=== PATIENT | male | born 1945 | race Caucasian/White ===

== ENCOUNTER 2018-02-16 14:39 | Emergency (ER) | payer MEDICARE, OTHER ==
[~2018-02-16] VITALS: Ht 185.4 cm; Wt 95.2 kg
[~2018-02-16 14:39] MED LIST changes: -CYCLOBENZAPRINE10 MG PO; -HYDROCODON-ACE1 EA13 PO
[2018-02-16] MEDS ORDERED: CYCLOBENZAPRINE10 MG PO ×2 (15:06)
[2018-02-16] MEDS ORDERED: HYDROCODON-ACE1 EA13 PO ×2 (15:06)
== END 2018-02-16 16:06 | disposition home or self-care (01) ==
LOC: ED 14:39
DX: M17.11 Unilateral primary osteoarthritis, right knee (principal)
CPT/HCPCS: 73560; 99283

== ENCOUNTER → 2018-02-16 | Emergency (ER) | payer MEDICARE, OTHER ==
[~2018-02-16] VITALS: Ht 185.4 cm; Wt 95.2 kg
[~2018-02-16] MED LIST: COLACE100 MG PO; CYCLOBENZAPRINE10 MG PO; HYDROCODON-ACE1 EA13 PO; NAPROXEN375 MG PO; NORCO 5-325 TA1 EACH PO; VALIUM5 MG PO
== END ==
LOC: ED 13:38
DX: M25.561 Pain in right knee (principal)

== ENCOUNTER 2020-03-01 07:50 | Day surgery (SDC) | payer OTHER ==
--- NOTE | 2020-02-24 10:57 | NUR ---
PT HERE TODAY FOR PRE ADMIT FOR TOTAL KNEE REPLACEMENT SURGERY ON 03/01/20 PT DOES NOT HAVE A WALKER HE WAS INSTRUCTED TO GO TO [facility] OR ANY PHARMACY FOR A WALKER AND BRING IT WITH HIM ON THE DAY OF SURGERY. PT DOES NOT HAVE ANY STEPS TO GET INTO HIS HOUSE, HE DOES NOT HAVE STAIRS IN HIS HOUSE. PT HAS A WALK IN SHOWER WITH A HAND HELD SHOWER HEAD. HE DOES NOT HAVE A TOILET SEAT RISER, HE WAS INTRUCTED TO GET ONE AT PHARMACY OF HIS CHOICE. HE LIVES WITH HIS SHE WILL BE WITH HIM DURING AND AFTER SURGERY. SHE WILL BE AVAILABLE TO TAKE HIM TO POST OP APPOINTMENTS AND PHYSICAL THERAPY APPOINTMENTS.
[~2020-03-01] VITALS: Ht 182.9 cm; Wt 99.8 kg
[~2020-03-01 07:50] MED LIST changes: +CYCLOBENZAPRINE10 MG PO; +HYDROCODON-ACE1 EA13 PO
--- NOTE | 2020-03-01 12:27 | NUR ---
03/01/20 1227 Mariah Aquino 1211- PT TO PACU IN SUPINE POSITION. EYES CLOSED WITH ORAL AIRWAY IN PLACE. PT UNRESPONSIVE TO VERBAL AND TACTILE STIMULI. BREATHING EASY AND UNLABORED ON 6 L O2 VIA SIMPLE MASK. REPORT RECEIVED FROM SENIOR IT SPECIALIST AND OR NURSE. SPO2 >95%. PULSES STRONG. CAP REFILL <3 SECONDS TO BILATERAL LOWER EXTREMITIES. 1218- PT CONTINUES TO SLEEP WITH ORAL AIRWAY IN PLACE. BREATHING EASY AND UNLABORED WITH SPO2 >95% ON 6 L O2 VIA SIMPLE MASK. NANETTE HOSE ON. PRITI DRESSING ON/GREEN LIGHT. CRYO CUFF APPLIED. 1223- PT OPENS EYES AND LIFTS HEAD. ORAL AIRWAY REMOVED. PT ASKINNG QUESTIONS ABOUT PROCEDURE AND QUICKLY FALLS BACK TO SLEEP. VSS. SPO2 >95% ON 6 L O2 VIA SIMPLE MASK.
--- NOTE | 2020-03-01 13:45 | NUR ---
VERBAL REPORT GIVEN TO SHOSHANA COYNE RN WHO RESUMES PT CARE AT THIS TIME.
--- NOTE | 2020-03-01 13:51 | NUR ---
PT ARRIVES TO DS TREATMENT ROOM FROM PACU AWAKE AND ABLE TO FOLLOW COMMANDS. PT DENIES ANY PAIN IN RIGHT KNEE AND IS ABLE TO SLIGHTLY MOVE ANKLE/TOES. PT HAS ON Q PUMP IN PLACE SET TO 2 AND PRITI DRESSING FLASHING GREEN. PT TOLERATES PO WELL, DENIES NAUSEA. CONT PULSE OXIMETER LEFT IN PLACE, ENCOURAGED TO CDB. PT ASKS ABOUT SPOUSE, KIRBY. CALL LIGHT WITHIN REACH.
--- NOTE | 2020-03-01 14:29 | NUR ---
PHYSICAL THERAPY CONTACTED TO LET THEM KNOW THE PT IS READY TO BE EVALUATED.
--- NOTE | 2020-03-01 15:30 | NUR ---
PT USES CALL LIGHT TO NOTIFY DS STAFF OF "FULL BLADDER AND SOME DRIBBLING" AND REQUESTS A CATHETER. PT EDUCATED ABOUT SPINAL AND URINARY FUNCTION AND PROVIDED URINAL. PLAN TO BLADDER SCAN PT IF UNABLE TO VOID. SPOUSE CONT AT BEDSIDE.
--- NOTE | 2020-03-01 17:00 | NUR ---
PT RETURNS FROM PHYSICAL THERAPY, DC CRITERIA MET AT THIS TIME. PT WOULD LIKE TO DISCHARGE HOME. DC INSTRUCTIONS PRESENTED TO PT AND SPOUSE, BOTH VERBALIZE AN UNDERSTANDING. PT AWARE OF MEDICATIONS ESCRIPTED TO PHARMACY BY DR. FUENTES. [id number]: 1500 MEDICATIONS MISSED IN PT HANDOFF. DR. FUENTES NOTIFIED AND WOULD LIKE MEDICATION TO BE GIVEN PRIOR TO DC; SEE EMAR. PT DC'S AMB WITH USE OF FWW WITH RN FOLLOWING WITH WC AND SPOUSE AT PT SIDE. PT AMBULATES WITH STEADY GAIT TO PERSONAL VEHICLE AT HOSPTIAL ENTRANCE TO HOME WITH SPOUSE.
[2020-03-01] MEDS ORDERED: ASPIRIN EC325 MG PO (17:11)
[2020-03-01] MEDS ORDERED: GABAPENTIN300 MG PO (17:11)
[2020-03-01] MEDS ORDERED: CELECOXIB200 MG PO (17:11)
[2020-03-01] MEDS ORDERED: SENNA LAX8.6 MG PO (17:11)
[2020-03-01] MEDS ORDERED: OXYCODONE HCL5 MG PO (17:11)
--- NOTE | 2020-03-01 18:06 | NUR ---
1600) RESPONDED TO PATIENT CALL LIGHT. PATIENT URINATED 250 MLS ORANGE FROM MEDS. PT IN ROOM WITH PATIENT UPON LEAVING ROOM.
--- NOTE | 2020-03-02 07:35 | OR ---
[facility] [place] [facility] [address], [place] [address] Signed DATE OF OPERATION: 03/01/2020 SURGEON: Gretta Johnson MD PREOPERATIVE DIAGNOSIS: Degenerative joint disease of right knee, severe. POSTOPERATIVE DIAGNOSIS: Degenerative joint disease of right knee, severe. PROCEDURE PERFORMED: Right total knee arthroplasty with Real. NURSING STAFFING COORDINATOR: LEXI Barbosa. ANESTHESIA: Spinal. BLOOD LOSS: 200 mL. IMPLANTS: Vinicius Triathlon size 5, 9 mm insert, and a 35 mm patella. BRIEF HISTORY: Dilan is a 74-year-old gentleman with progressive worsening knee arthritis. Risks and benefits of operative treatment were discussed with him. He elected to proceed. DESCRIPTION OF PROCEDURE: Once consent was obtained, he was taken to the operating room after adequate anesthesia. He was placed on the operating room table. All downside pressure points well padded. The leg was prepped and draped in the standard sterile fashion and the knee was approached through standard anterior approach. Subvastus approach was undertaken. The arthrotomy was performed and extended up underneath the vastus medialis. The synovium was mobilized. The MCL was elevated with a sleeve around the posteromedial corner. The infrapatellar fat pad was excised. Knee was flexed and the menisci were transected as was the ACL. The checkpoint was placed in the superior medial femoral condyle and both pins for the femoral tracker were placed intra-articular. The two pins for the tibial retractor were placed one handsbreadth below the tibial tuberosity and the knee was Electronically Signed By: GRETTA JOHNSON MD 03/02/20 0735 PATIENT NAME: DILAN SOSA OPERATIVE REPORT DATE OF : 47 REPORT #: [id number] PHYSICIAN: GRETTA JOHNSON MD PCP: KYRA REINA MD REPORT IS CONFIDENTIAL AND NOT TO BE RELEASED WITHOUT AUTHORIZATION [facility] [address], [place] [address] Signed registered with the computer. Once this was accomplished, the data points were taken on the knee, both femur and tibia, and the stress poses were taken. Once this was accomplished, the plan was evaluated and found to be intact. We then elected to proceed with cutting. The straight cuts were made with care taken to protect the surrounding soft tissue. The saw was then changed to the 90 degrees on the two distal cuts were made. Once this was accomplished, all bone was removed as well as osteophytes. The trials were positioned and the knee was evaluated and found to be stable in line with our plan. The femoral drill holes were made, followed by the tibial keel punch and drill holes. The implants were selected. We did go ahead and remove osteophytes off the posterior femur mostly lateral. Compression mostly medial. Once this was accomplished, the final tibia was impacted into position, followed by the polyethylene. We then impacted the femur into position and extended nicely loaded. Once again, checked stability and range of motion, per the computer we had 0 to 125 degrees of flexion with good stability and slight varus. The patella was cut sized and drilled for a 35 mm patella, this was clamped into position and patellar tracking was checked and found to be excellent. The wound was copiously irrigated with antibiotic solution. The On-Q pain pump was placed percutaneously into the adductor canal from the suprapatellar pouch. The arthrotomy was then closed using #1 Vicryl for the corner stitch followed by #2 Stratafix, subcutaneous tissue with #0 Stratafix, and skin with arden. We did inject the periarticular soft tissues with 100 mL ropivacaine and Toradol mixture prior to closure. The pins removed and those sites were treated with Steri-Strips. The wounds were dressed with a PRITI wound VAC dressing and Gerson wrap. He tolerated the procedure well. All sponge, needle, and instrument counts were correct. Gretta Johnson MD BA/MODL /[id number] Copies: ~ Electronically Signed By: GRETTA JOHNSON MD 03/02/20 0735 PATIENT NAME: DILAN SOSA OPERATIVE REPORT DATE OF : 47 REPORT #: [id number] PHYSICIAN: GRETTA JOHNSON MD PCP: KYRA REINA MD REPORT IS CONFIDENTIAL AND NOT TO BE RELEASED WITHOUT AUTHORIZATION
== END 2020-03-01 18:00 | disposition home or self-care (01) ==
LOC: DS 07:50
PROVIDERS: Specialist
PROC: 8E0YXBZ Computer Assisted Procedure of Lower Extremity (ICD-10-PCS; 2020-03-01)
PROC: 0SRC06Z Replacement of Right Knee Joint with Oxidized Zirconium on Polyethylene Synthetic Substitute, Open Approach (ICD-10-PCS; principal; 2020-03-01 08:30)
DX: M17.11 Unilateral primary osteoarthritis, right knee (principal); Z79.899 Other long term (current) drug therapy
CPT/HCPCS: 01402; 64447; 64450; 76942; A9270; C1776; C9803; J0690; J1100; J1885; J2001; J2250; J2405; J2704; J2765; J2795; J3010; J7121